=== PATIENT | female | born 1980 | race Caucasian/White ===

== ENCOUNTER 2016-11-12 06:21 | Emergency (ER) | payer SELFPAY ==
--- NOTE | 2016-11-12 08:24 | DIAGNOSTIC IMAGING REPORT ---
PROCEDURE: CT ABD/PELVIS WITH CONTRAST CLINICAL INDICATION: ABDOMINAL PAIN TECHNIQUE: 125 ml of Isovue 300 were injected intravenously and axial images were obtained of the entire abdomen and pelvis with sagittal and coronal reformations. COMPARISON: CT abdomen/pelvis 03/06/2013. FINDINGS: ABDOMEN: Lung bases are clear. Normal heart size. Cholecystectomy. Calcified hepatic granuloma. Stable 2.3 cm hypoenhancing lesion in the posterior aspect of the hepatic dome consistent with a hemangioma. Pancreas, spleen, adrenal glands and kidneys are unremarkable. No hydronephrosis. Minor atherosclerosis. Nonspecific bowel gas pattern. PELVIS: Normal appendix. 1.5 cm left ovarian cyst. Uterus and bladder are unremarkable. No pelvic mass, inflammatory changes or free fluid. Bones are unremarkable. IMPRESSION: 1. Cholecystectomy 2. Hepatic hemangioma 3. 1.5 cm left ovarian cyst 4. Results discussed with Dr. Greenfield All CT scans at this facility use dose modulation, iterative reconstruction, and/or weight-based dosing when appropriate to reduce radiation dose to as low as reasonably achievable.
--- NOTE | 2016-11-12 09:45 | ED CLINICAL REPORT ---
Clinical Report - Physicians/Mid Levels [facility] [address] [place] [address] 11/12/2016 6:22 Patient: AYANA GARCIA Time Seen: 07:17 Nov 12 2016. Arrived- By private vehicle. Historian- patient. CPT: ER phys charges level 4 (#[id number]). HISTORY OF PRESENT ILLNESS Chief Complaint: WEIGHT LOSS, FATIGUE, POOR APPETITE, WEAKNESS, NAUSEA, VOMITING and DIARRHEA. This started 2 years [employer] and is still present. At its maximum, severity described as moderate. When seen in the E.D., severity described as moderate. Modifying factors. Not worsened by anything. Not relieved by anything. (Has seen gastroenterology twice and was seeing neurology when her insurance ran out.). Similar symptoms previously: Chronically. Recent medical care: Not recently seen/assessed. REVIEW OF SYSTEMS No fever, sore throat, sinus drainage, nasal congestion or cough. No difficulty breathing, chest pain, abdominal pain, nausea or vomiting. No diarrhea, black stools, bloody stools, chills or difficulty with urination. No skin rash, back pain, calf pain or blackouts. No difficulty with ambulation. All systems otherwise negative, except as recorded above. PAST HISTORY Migraine Headache. Atypical Chest Pain. Chest Wall Pain. Diarrhea. Rectal Bleed. Gastroenteritis. Abdominal Pain. Nausea. Vomiting. UTI - Urinary Tract Infection. Pyelonephritis. Ureterolithiasis. Renal Colic. Depression. URI. Lifestyle / Substance Problems. Headache. Tension-Type Headache. Seizure. Ureterolithiasis [RuleOut]. Additional Surgeries: Cholecystectomy. Lithotripsy. Tubal Ligation. Uteroscopy. Medications: None. Allergies: Cipro.(vomiting) Morphine and Related. Definite Severe (headache, pain) Reglan. Definite Severe(jittery) Vicodin. Definite Severe(itching). SOCIAL HISTORY Heavy tobacco smoker (cigarette)- less than 1 pack per day. History of drug use: marijuana. No alcohol use. ADDITIONAL NOTES The nursing notes have been reviewed. PHYSICAL EXAM Vital Signs: 11/12/2016 06:27 BP: 119/69. HR: 56. RR: 18. O2 saturation: 100%. Temp: 98.5 F. Pain level now: 5/10. Appearance: Alert. Appears to be in pain. Patient in moderate distress. Eyes: Eyes normal inspection. ENT: Pharynx normal. Neck: No meningeal signs or lymphadenopathy. (Paracervical soft tissue tenderness to palpation and ROM.). CVS: Normal heart rate and rhythm. Heart sounds normal. Pulses normal. Respiratory: No respiratory distress. Breath sounds normal. Abdomen: Soft. Mild tenderness in the periumbilical area. No guarding. Bowel sounds normal. No mass. Back: Normal inspection. Skin: Skin warm. No rash. Extremities: Extremities exhibit normal ROM. No lower extremity edema. Neuro: Oriented X 3. No motor deficit. No sensory deficit. Reflexes normal. LABS, X-RAYS, AND EKG Abdominal CT: GB removed. 1.5 cm left ovarian cyst. Abdominal CT performed with IV contrast. The study was interpreted by the radiologist and discussed with the radiologist. Laboratory Tests: UA-Culture if indicated: (SONIA: 11/12/2016 06:45) ( [facility] 11/12/2016 07:53) Final results Test Result Flag Units (Reference) URINE COLOR YELLOW URINE APPEARANCE CLEAR URINE GLUCOSE NEGATIVE (NEGATIVE) URINE BILIRUBIN NEGATIVE (NEGATIVE) URINE KETONE NEGATIVE (NEGATIVE) URINE SPECIFIC GRAVITY <= 1.005 L (1.010-1.030) URINE PH 6.0 (5.0-8.0) URINE PROTEIN NEGATIVE (NEGATIVE) URINE UROBILINOGEN 0.2 EU/dL (0.2-1.0) URINE NITRITE NEGATIVE (NEGATIVE) URINE BLOOD 2+ (NEGATIVE) URINE LEUK ESTERASE NEGATIVE (NEGATIVE) URINE RBC 1-3 rbc/hpf (0-1) URINE WBC RARE wbc/hpf (0-1) URINE EPITHELIAL CELLS 1-3 EPI/hpf (0-5) URINE BACTERIA TRACE (<1+) (NONE SEEN) URINE COMMENT CULT NOT INDICATED URINE CULTURES ARE SET-UP BASED ON THE FOLLOWING CRITERIA:POSITIVE NITRITEPOSITIVE LEUKOCYTE ESTERASEGREATER THAN 10 WHITE BLOOD CELLSMODERATE (2+) OR GREATER BACTERIA Urine: (SONIA: 11/12/2016 06:45) ( [facility] 11/12/2016 07:17[facility] Final results Test Result Flag Units (Reference) URINE NEGATIVE ESR: (SONIA: 11/12/2016 07:33) ( [facility] 11/12/2016 08:06) Final results Test Result Flag Units (Reference) SED RATE WESTERGREN 3 mm/hr (0-20) CBC w Diff: (SONIA: 11/12/2016 06:40) ( [facility] 11/12/2016 07:16) Final results Test Result Flag Units (Reference) WHITE BLOOD COUNT 8.0 K/uL (4.5-11.5) RED BLOOD COUNT 4.67 M/uL (4.00-5.20) HEMOGLOBIN 12.6 gm/dL (12.0-16.0) HEMATOCRIT 38.7 % (36.0-46.0) MEAN CELL VOLUME 83 fL (80-100) MEAN CORPUSCULAR HGB 27 pg (26-34) MEAN CORPUSCULAR HGB CONC 33 g/dL (31-37) RED CELL DISTRIBUTION WIDTH 16.0 H % (11.6-14.8) PLATELET COUNT 257 K/uL (150-400) NEUTROPHIL % 55.7 % (50-75) LYMPH % 35.9 % (25-40) MONO % 4.7 % (3-14) EOSINOPHIL % 3.0 % (0-4) BASOPHIL % 0.7 % (0-2) PT with INR: (SONIA: 11/12/2016 06:40) ( [facility] 11/12/2016 07:18) Final results Test Result Flag Units (Reference) INR 1.0 (0.8-1.2) Low Intensity Therapy: INR 1.5-2.0 PT range 18.5-23.1Mod.Intensity Therapy: INR 2.0-3.0 PT range 23.1-31.5High Intensity Therapy: INR 2.5-3.5 PT range 27.4-35.5High Intensity Therapy 2: INR 3.0-4.0 PT range 31.5-39.3 [id number]: (SONIA: 11/12/2016 07:33) ( MsgRcvd 11/12/2016 07:50) Final results Test Result Flag Units (Reference) C-REACTIVE PROTEIN < 0.2 mg/dL (0.0-0.9) [id number]: (SONIA: 11/12/2016 07:33) ( MsgRcvd 11/12/2016 08:49) Final results Test Result Flag Units (Reference) PROCALCITONIN <0.5 ng/mL (0-0.5) PCT Concentration: Interpretation : Risk/option for action PCT <=0.5 ng/mL : Systemic : Low risk forinfection(sepsis): progression to severeis not likely. : systemic infection.Local bacterial : CAUTION-PCT levelsinfection is : below 0.5 ng/mL do notpossible. : exclude an infection,because localizedinfections (withoutsystemic signs) may beassociated with suchlow levels. If PCT ismeasured very earlyafter a bacterialchallenge (usually <6hours), these valuesmay still be low. Inthis case PCT shouldbe re-assessed 6-24hours later. PCT >0.5 and : Systemic infection: Moderate risk for<= 2 ng/mL : (sepsis) is : progression to severepossible, but : systemic infection.other conditions : The patient should beare known to : closely monitoredelevate PCT. : both clinically andby re-assessing PCTwithin 6-24 hours. PCT > 2 ng/mL : Systemic infection: High risk for(sepsis) is likely: progression to severeunless other : systemic infection.causes are known. : PCT >= 10 ng/mL : Important systemic: High likelihood ofinflammatory : severe sepsis orresponse, almost : septic shock.exclusively due to:severe bacterial :sepsis or septic :shock. : CMP: (SONIA: 11/12/2016 06:40) ( MsgRcvd 11/12/2016 08:25) Final results Test Result Flag Units (Reference) GLUCOSE 82 mg/dL (70-110) BUN 11 mg/dL (7-18) CREATININE 1.0 mg/dL (0.6-1.3) Estimated GFR >60 mL/min Estimated GFR- >60 mL/min Note: Persistent reduction over 3 months in eGFR<60 mL/min/1.73 m2 defines CKD. Patients with eGFR values>=60 mL/min/1.73 m2 may also have CKD if evidence ofpersistent proteinuria. Additional information may be foundat www.[email or web address].org. SODIUM 142 mmol/L (136-145) POTASSIUM 3.8 mmol/L (3.5-5.1) CHLORIDE 106 mmol/L (98-107) CARBON DIOXIDE 25 mmol/L (21-32) CALCIUM 9.0 mg/dL (8.5-10.1) TOTAL PROTEIN 7.1 g/dL (6.4-8.2) ALBUMIN 4.1 g/dL (3.3-5.0) BILIRUBIN, TOTAL 0.4 mg/dL (0.0-1.0) ALKALINE PHOSPHATASE 40 L U/L (46-116) AST (SGOT) 11 L U/L (15-37) ALT (SGPT) 22 U/L (12-78) LIPASE 89 U/L (73-393) AMYLASE 44 U/L (25-115) BETA HCG, QUANTITATIVE <1 mIU/mL REFERENCE RANGE:Adult Males: <2 mIU/mLNon- Females: <6 mIU/mL Females:Approximate Approximate hCGGestational Age Range (mIU/mL) 0-1 week 0-501-2 weeks 40-3002-3 weeks 100-59466-4 weeks 500-34566-0 months 5,000-200,0002-3 months 10,000-100,0002nd trimester 3,000-50,0003rd trimester 1,000-50,000 THYROID STIMULATING HORMONE 6.073 H uIU/mL (0.34-3.74) . PROGRESS AND PROCEDURES Course of Care: IV NS Zofran 4 mg IV Toradol 30 mg IV Ultram 100 mg po Patient is stable. Pt does not have any exam or testing data to direct work-up in a specific direction. There are no clinical signs of inflammation or infection. Patient/family counseled. Disposition: Discharged. Condition: stable and improved. CLINICAL IMPRESSION Chronic periumbilical abdominal pain of undetermined cause. Weight loss Mild hypothyroidism Chronic radicular neck pain. INSTRUCTIONS Avoid alcohol and NSAIDS. Examples of NSAIDS include aspirin, ibuprofen (Advil) and naproxen (Aleve). Avoid spicy foods. Other diet: no caffeine. (Stop motrin and excedrin for next 10 days.). Warnings: Further evaluation is necessary. SEDATIVE MEDICATION: You were given sedative medication during your visit. Do not drive or operate dangerous machinery. Prescription Medications: Zofran (orally disintegrating tablets) 4 mg: take 1 orally every 6 hours as needed for nausea. Dispense fifteen (15). No refill. Carafate 1 gm tablets: take 1 orally four times daily (30 minutes before meals and at bedtime) for 10 days. Dispense forty (40). No refills. Substitution is permissible. Ultram 50 mg tablets: take 1-2 orally every 6 hours as needed for pain. Dispense twenty (20). No refills. Substitution is permissible. Prilosec 40 mg capsules: take 1 capsule orally every day for 10 days. Dispense ten (10). No refill. Substitution is permissible. Follow-up: Follow up with your doctor in one week. Call for an appointment. Understanding of the discharge instructions verbalized by patient and family. Discharge instructions reviewed with and understanding was verbalized by spouse. (Electronically signed by Alexey Greenfield MD 11/24/2016 2:42)
--- NOTE | 2016-11-12 09:45 | ED CLINICAL REPORT ---
Clinical Report - Physicians/Mid Levels [facility] [address] [place] [address] 11/12/2016 6:22 Patient: AYANA GARCIA Time Seen: 07:17 Nov 12 2016. Arrived- By private vehicle. Historian- patient. CPT: ER phys charges level 4 (#[id number]). HISTORY OF PRESENT ILLNESS Chief Complaint: WEIGHT LOSS, FATIGUE, POOR APPETITE, WEAKNESS, NAUSEA, VOMITING and DIARRHEA. 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 At its maximum, severity described as moderate. When seen in the E.D., severity described as moderate. Modifying factors. Not worsened by anything. Not relieved by anything. (Has seen gastroenterology twice and was seeing neurology when her insurance ran out.). Similar symptoms previously: Chronically. Recent medical care: Not recently seen/assessed. REVIEW OF SYSTEMS No fever, sore throat, sinus drainage, nasal congestion or cough. No difficulty breathing, chest pain, abdominal pain, nausea or vomiting. No diarrhea, black stools, bloody stools, chills or difficulty with urination. No skin rash, back pain, calf pain or blackouts. No difficulty with ambulation. All systems otherwise negative, except as recorded above. PAST HISTORY Migraine Headache. Atypical Chest Pain. Chest Wall Pain. Diarrhea. Rectal Bleed. Gastroenteritis. Abdominal Pain. Nausea. Vomiting. UTI - Urinary Tract Infection. Pyelonephritis. Ureterolithiasis. Renal Colic. Depression. URI. Lifestyle / Substance Problems. Headache. Tension-Type Headache. Seizure. Ureterolithiasis [RuleOut]. Additional Surgeries: Cholecystectomy. Lithotripsy. Tubal Ligation. Uteroscopy. Medications: None. Allergies: Cipro.(vomiting) Morphine and Related. Definite Severe (headache, pain) Reglan. Definite Severe(jittery) Vicodin. Definite Severe(itching). SOCIAL HISTORY Heavy tobacco smoker (cigarette)- less than 1 pack per day. History of drug use: marijuana. No alcohol use. ADDITIONAL NOTES The nursing notes have been reviewed. PHYSICAL EXAM Vital Signs: 11/12/2016 06:27 BP: 119/69. HR: 56. RR: 18. O2 saturation: 100%. Temp: 98.5 F. Pain level now: 5/10. Appearance: Alert. Appears to be in pain. Patient in moderate distress. Eyes: Eyes normal inspection. ENT: Pharynx normal. Neck: No meningeal signs or lymphadenopathy. (Paracervical soft tissue tenderness to palpation and ROM.). CVS: Normal heart rate and rhythm. Heart sounds normal. Pulses normal. Respiratory: No respiratory distress. Breath sounds normal. Abdomen: Soft. Mild tenderness in the periumbilical area. No guarding. Bowel sounds normal. No mass. Back: Normal inspection. Skin: Skin warm. No rash. Extremities: Extremities exhibit normal ROM. No lower extremity edema. Neuro: Oriented X 3. No motor deficit. No sensory deficit. Reflexes normal. LABS, X-RAYS, AND EKG Abdominal CT: GB removed. 1.5 cm left ovarian cyst. Abdominal CT performed with IV contrast. The study was interpreted by the radiologist and discussed with the radiologist. Laboratory Tests: UA-Culture if indicated: (SONIA: 11/12/2016 06:45) ( [facility] 11/12/2016 07:53) Final results Test Result Flag Units (Reference) URINE COLOR YELLOW URINE APPEARANCE CLEAR URINE GLUCOSE NEGATIVE (NEGATIVE) URINE BILIRUBIN NEGATIVE (NEGATIVE) URINE KETONE NEGATIVE (NEGATIVE) URINE SPECIFIC GRAVITY <= 1.005 L (1.010-1.030) URINE PH 6.0 (5.0-8.0) URINE PROTEIN NEGATIVE (NEGATIVE) URINE UROBILINOGEN 0.2 EU/dL (0.2-1.0) URINE NITRITE NEGATIVE (NEGATIVE) URINE BLOOD 2+ (NEGATIVE) URINE LEUK ESTERASE NEGATIVE (NEGATIVE) URINE RBC 1-3 rbc/hpf (0-1) URINE WBC RARE wbc/hpf (0-1) URINE EPITHELIAL CELLS 1-3 EPI/hpf (0-5) URINE BACTERIA TRACE (<1+) (NONE SEEN) URINE COMMENT CULT NOT INDICATED URINE CULTURES ARE SET-UP BASED ON THE FOLLOWING CRITERIA:POSITIVE NITRITEPOSITIVE LEUKOCYTE ESTERASEGREATER THAN 10 WHITE BLOOD CELLSMODERATE (2+) OR GREATER BACTERIA Urine: (SONIA: 11/12/2016 06:45) ( [facility] 11/12/2016 07:17) Final results Test Result Flag Units (Reference) URINE NEGATIVE ESR: (SONIA: 11/12/2016 07:33) ( [facility] 11/12/2016 08:06) Final results Test Result Flag Units (Reference) SED RATE WESTERGREN 3 mm/hr (0-20) CBC w Diff: (SONIA: 11/12/2016 06:40) ( [facility] 11/12/2016 07:16) Final results Test Result Flag Units (Reference) WHITE BLOOD COUNT 8.0 K/uL (4.5-11.5) RED BLOOD COUNT 4.67 M/uL (4.00-5.20) HEMOGLOBIN 12.6 gm/dL (12.0-16.0) HEMATOCRIT 38.7 % (36.0-46.0) MEAN CELL VOLUME 83 fL (80-100) MEAN CORPUSCULAR HGB 27 pg (26-34) MEAN CORPUSCULAR HGB CONC 33 g/dL (31-37) RED CELL DISTRIBUTION WIDTH 16.0 H % (11.6-14.8) PLATELET COUNT 257 K/uL (150-400) NEUTROPHIL % 55.7 % (50-75) LYMPH % 35.9 % (25-40) MONO % 4.7 % (3-14) EOSINOPHIL % 3.0 % (0-4) BASOPHIL % 0.7 % (0-2) PT with INR: (SONIA: 11/12/2016 06:40) ( [facility] 11/12/2016 07:18) Final results Test Result Flag Units (Reference) INR 1.0 (0.8-1.2) Low Intensity Therapy: INR 1.5-2.0 PT range 18.5-23.1Mod.Intensity Therapy: INR 2.0-3.0 PT range 23.1-31.5High Intensity Therapy: INR 2.5-3.5 PT range 27.4-35.5High Intensity Therapy 2: INR 3.0-4.0 PT range 31.5-39.3 [id number]: (SONIA: 11/12/2016 07:33) ( MsgRcvd 11/12/2016 07:50) Final results Test Result Flag Units (Reference) C-REACTIVE PROTEIN < 0.2 mg/dL (0.0-0.9) [id number]: (SONIA: 11/12/2016 07:33) ( MsgRcvd 11/12/2016 08:49) Final results Test Result Flag Units (Reference) PROCALCITONIN <0.5 ng/mL (0-0.5) PCT Concentration: Interpretation : Risk/option for action PCT <=0.5 ng/mL : Systemic : Low risk forinfection(sepsis): progression to severeis not likely. : systemic infection.Local bacterial : CAUTION-PCT levelsinfection is : below 0.5 ng/mL do notpossible. : exclude an infection,because localizedinfections (withoutsystemic signs) may beassociated with suchlow levels. If PCT ismeasured very earlyafter a bacterialchallenge (usually <6hours), these valuesmay still be low. Inthis case PCT shouldbe re-assessed 6-24hours later. PCT >0.5 and : Systemic infection: Moderate risk for<= 2 ng/mL : (sepsis) is : progression to severepossible, but : systemic infection.other conditions : The patient should beare known to : closely monitoredelevate PCT. : both clinically andby re-assessing PCTwithin 6-24 hours. PCT > 2 ng/mL : Systemic infection: High risk for(sepsis) is likely: progression to severeunless other : systemic infection.causes are known. : PCT >= 10 ng/mL : Important systemic: High likelihood ofinflammatory : severe sepsis orresponse, almost : septic shock.exclusively due to:severe bacterial :sepsis or septic :shock. : CMP: (SONIA: 11/12/2016 06:40) ( MsgRcvd 11/12/2016 08:25) Final results Test Result Flag Units (Reference) GLUCOSE 82 mg/dL (70-110) BUN 11 mg/dL (7-18) CREATININE 1.0 mg/dL (0.6-1.3) Estimated GFR >60 mL/min Estimated GFR- >60 mL/min Note: Persistent reduction over 3 months in eGFR<60 mL/min/1.73 m2 defines CKD. Patients with eGFR values>=60 mL/min/1.73 m2 may also have CKD if evidence ofpersistent proteinuria. Additional information may be foundat www.[email or web address].org. SODIUM 142 mmol/L (136-145) POTASSIUM 3.8 mmol/L (3.5-5.1) CHLORIDE 106 mmol/L (98-107) CARBON DIOXIDE 25 mmol/L (21-32) CALCIUM 9.0 mg/dL (8.5-10.1) TOTAL PROTEIN 7.1 g/dL (6.4-8.2) ALBUMIN 4.1 g/dL (3.3-5.0) BILIRUBIN, TOTAL 0.4 mg/dL (0.0-1.0) ALKALINE PHOSPHATASE 40 L U/L (46-116) AST (SGOT) 11 L U/L (15-37) ALT (SGPT) 22 U/L (12-78) LIPASE 89 U/L (73-393) AMYLASE 44 U/L (25-115) BETA HCG, QUANTITATIVE <1 mIU/mL REFERENCE RANGE:Adult Males: <2 mIU/mLNon- Females: <6 mIU/mL Females:Approximate Approximate hCGGestational Age Range (mIU/mL) 0-1 week 0-501-2 weeks 40-3002-3 weeks 100-94922-2 weeks 500-86063-6 months 5,000-200,0002-3 months 10,000-100,0002nd trimester 3,000-50,0003rd trimester 1,000-50,000 THYROID STIMULATING HORMONE 6.073 H uIU/mL (0.34-3.74) . PROGRESS AND PROCEDURES Course of Care: IV NS Zofran 4 mg IV Toradol 30 mg IV Ultram 100 mg po Patient is stable. Pt does not have any exam or testing data to direct work-up in a specific direction. There are no clinical signs of inflammation or infection. Patient/family counseled. Disposition: Discharged. Condition: stable and improved. CLINICAL IMPRESSION Chronic periumbilical abdominal pain of undetermined cause. Weight loss Mild hypothyroidism Chronic radicular neck pain. INSTRUCTIONS Avoid alcohol and NSAIDS. Examples of NSAIDS include aspirin, ibuprofen (Advil) and naproxen (Aleve). Avoid spicy foods. Other diet: no caffeine. (Stop motrin and excedrin for next 10 days.). Warnings: Further evaluation is necessary. SEDATIVE MEDICATION: You were given sedative medication during your visit. Do not drive or operate dangerous machinery. Prescription Medications: Zofran (orally disintegrating tablets) 4 mg: take 1 orally every 6 hours as needed for nausea. Dispense fifteen (15). No refill. Carafate 1 gm tablets: take 1 orally four times daily (30 minutes before meals and at bedtime) for 10 days. Dispense forty (40). No refills. Substitution is permissible. Ultram 50 mg tablets: take 1-2 orally every 6 hours as needed for pain. Dispense twenty (20). No refills. Substitution is permissible. Prilosec 40 mg capsules: take 1 capsule orally every day for 10 days. Dispense ten (10). No refill. Substitution is permissible. Follow-up: Follow up with your doctor in one week. Call for an appointment. Understanding of the discharge instructions verbalized by patient and family. Discharge instructions reviewed with and understanding was verbalized by spouse. (Electronically signed by Alexey Greenfield MD 11/24/2016 2:42)
--- NOTE | 2016-11-12 09:46 | ED NURSING NOTES ---
Clinical Report - Nurses [facility] [address] [place] [address] 11/12/2016 6:22 Patient: AYANA GARCIA TRIAGE Triage time 06:25. Acuity: LEVEL 3. Chief Complaint: WEIGHT LOSS, FATIGUE, POOR APPETITE, WEAKNESS, NAUSEA, VOMITING and DIARRHEA. --06:35 Dionne Rojo R.N. 06:27 11/12/16. BP: 119/69 taken on the left arm, while lying. HR: 56. RR: 18 (regular and unlabored). O2 saturation: 100% on room air. Temp: 98.5 F (oral). Pain level now: 09/19. --06:35 Dionne Rojo R.N. Weight: 63.5 kg stated. Height/Length: 64 inches Per Patient. BMI: 24. --06:31 Dionne Rojo R.N. Medications None. --06:33 Dionne Rojo R.N. Allergies Morphine and Related. Definite Severe (headache, pain) --06:33 Dionne Rojo R.N. Reglan. Definite Severe(jittery) --06:33 Dionne Rojo R.N. Cipro.(vomiting) Vicodin. Definite Severe(itching) --06:34 Dionne Rojo R.N. History Arrived by private vehicle. Historian: patient. Accompanied by family. Primary physician (none). Onset. (over the last year). ( not eaten much in the last 2-3 days, weak, worse now). PAST MEDICAL HX: Immunizations: up-to-date. Last normal menstrual period was 4 weeks ago. 4. Para 3. Sexual history - sexually active. Has had a tubal ligation. SOCIAL HX: Heavy tobacco smoker (cigarette)- 1 pack per day. History of drug use: marijuana. Recently used drugs yesterday. No alcohol use. The patient was exposed to C-diff. ABUSE ASSESSMENT: No report of abuse. SELF HARM ASSESSMENT: A self harm assessment was performed. The patient answered "no" to the question "Have you recently felt down, depressed, or hopeless?", "Have you noticed less interest or pleasure in doing things?", "Do you have thoughts of harming or killing yourself?", "Are you here because you tried to hurt yourself?", "Have you ever tried to hurt yourself before today?", "Have you recently had thoughts about harming or killing others?" and "Do you have any dangerous items in your possession?". FALL RISK ASSESSMENT: Fall risk assessment completed. No fall risk identified. NUTRITIONAL RISK ASSESSMENT: The nutritional risk assessment revealed no deficiencies. FUNCTIONAL ASSESSMENT: Functional assessment: no impairments noted. LEARNING NEEDS ASSESSMENT: The learning needs assessment revealed no barriers. SKIN INTEGRITY ASSESSMENT: Skin integrity risk assessment completed. No skin integrity risk identified. --06:35 Dionne Rojo R.N. PROBLEMS: C. Difficile Colitis. Migraine Headache. Atypical Chest Pain. Chest Wall Pain. Diarrhea. Rectal Bleed. Gastroenteritis. Abdominal Pain. Nausea. Vomiting. UTI - Urinary Tract Infection. Pyelonephritis. Ureterolithiasis. Renal Colic. Depression. URI. Lifestyle / Substance Problems. Headache. Immunizations. Tension-Type Headache. LNMP - Last Normal Menstrual Period. Seizure. --06:34 Dionne Rojo R.N. Ureterolithiasis [RuleOut]. --06:34 Dionne Rojo R.N. ADDITIONAL SURGERIES: Cholecystectomy. Lithotripsy. Tubal Ligation. Uteroscopy. --06:34 Dionne Rojo R.N. Interventions ID band on patient. To treatment room. --06:35 Dionne Rojo R.N. PHYSICAL ASSESSMENT Ambulatory to room. GENERAL / NEURO / PSYCH: Alert. Oriented X 4. Appears in pain. HEENT: Pupils equal, round and reactive to light. No facial asymmetry noted. Mucous membranes are pink. RESPIRATORY: Respirations not labored. Chest nontender. Breath sounds within normal limits. CVS: Normal sinus rhythm noted. Capillary refill less than 2 seconds. Pulses within normal limits. GI / : Abdomen soft and nontender and normal bowel sounds. SKIN: Skin intact. Skin is warm and dry. Normal skin turgor. --06:35 Dionne Rojo R.N. NURSING PROGRESS NOTES Patient gowned. Two patient identifiers checked. Call light placed in reach. Side rails up x 1. Bed placed in lowest position. Brakes of bed on. Patient ready for evaluation- chart flagged. --06:35 Dionne Rojo R.N. 06:48 11/12/2016 Site #1 started via IV in the right forearm with an 20g angiocath, with aseptic technique and good blood return; one attempt. Blood drawn: rainbow set. Labeled in the presence of the patient and sent to the lab. Saline lock flushed with 10 mL saline. --06:51 Dionne Rojo R.N. 07:39 11/12/2016 Started bag #1 1000 mL IV Fluids IV NS (Saline); at 999 mL/hr over 1 hour(s) via site #1. Allergies verified and confirmed 5 rights. IV patency established. IV site checked: no pain, redness, or swelling. IV flushed thoroughly pre- and post-medication administration. --07:44 Ya Sigala R.N. Care transferred and report received ([id number]). --07:52 Barrett Franco R.N. 07:53 11/12/16. --07:53 Barrett Franco R.N. 07:52 11/12/16. BP: 97/56. HR: 64. RR: 16. O2 saturation: 100% on room air. Temp: 98.4 F (oral). Pain level now: 5/10. Additional comments: Pain is located in back and right side. --07:53 Barrett Franco R.N. 07:53 11/12/16. Patient and family informed about reason for wait and about plan of care. --07:53 Barrett Franco R.N. 07:58 11/12/2016 Zofran (Ondansetron HCl) IVP 4 mg given over 2 minute(s) via site #1. Allergies verified and confirmed 5 rights. IV patency established. IV site checked: no pain, redness, or swelling. IV flushed thoroughly pre- and post-medication administration. IVP given by RN. --07:58 Barrett Franco R.N. 07:58 11/12/16. Patient transported to radiology by stretcher with Sferra. --07:58 Barrett Franco R.N. 08:22 11/12/2016 Toradol IVP 30 mg given over 2 minute(s) via site #1. Allergies verified and confirmed 5 rights. IV patency established. IV site checked: no pain, redness, or swelling. IV flushed thoroughly pre- and post-medication administration. IVP given by RN. --08:22 Barrett Franco R.N. Patient returned from radiology by stretcher with Sferra. ([id number]). --08:22 Barrett Franco R.N. 08:22 11/12/16. Patient and family informed about reason for wait and about plan of care. --08:22 Barrett Franco R.N. 08:23 11/12/16. Patient waiting for lab and CT results. --08:23 Barrett Franco R.N. 08:46 11/12/16. Reassessment after medication administered. She has had no adverse reaction. Overall patient status is the same- she states feels the same. --08:46 Barrett Franco R.N. 08:47 11/12/16. ( c/o pain 5/10, right side, flank). --08:47 Barrett Franco R.N. 09:24 11/12/16. Patient and family informed about plan of care. --09:24 Barrett Franco R.N. 09:43 11/12/2016 Ultram (TraMADol HCl) PO 100 mg given. Allergies verified, confirmed 5 rights and sedative warning given to the patient. --09:48 Barrett Franco R.N. 09:53 11/12/2016 IV Fluids IV NS Discontinued: bag #1 infused. Total amount infused: 1000 mL. IV patency established. IV site checked: no pain, redness, or swelling. IV flushed thoroughly. --09:53 Barrett Franco R.N. DISPOSITION / DISCHARGE 09:53 11/12/16. Condition at departure: improved. The goals identified in the patient's plan of care were met. No learning barriers present. Discharge instructions provided and reviewed with the patient and spouse. Reviewed warnings. Reviewed medication(s). Treatments reviewed. Patient and spouse verbalized understanding. Written instructions provided in Egyptian. The patient was discharged by the physician. She was discharged home and accompanied by family. She left the Emergency Department ambulatory and via private vehicle. Family member driving. FALL RISK ASSESSMENT: Fall risk assessment completed. No fall risk identified. --09:54 Barrett Franco R.N. 09:52 11/12/16. BP: 106/74. HR: 75. RR: 16. O2 saturation: 99% on room air. Temp: 98.2 F (oral). Pain level now: 08/20. --09:54 Barrett Franco R.N. 09:54 11/12/16. Departure time: 09:54 Nov 12 2016. --09:54 Barrett Franco R.N. Locked/Released at 11/12/2016 9:57 by Barrett Franco R.N.
--- NOTE | 2016-11-12 09:46 | ED ORDER SUMMARY ---
..... Patient: AYANA GARCIA OrderSheet [facility] VisitID: [id number] [address] [place] [address] 36y, F Registration Date/Time: 11/12/2016 ORDER SHEET Weight: 63.5 kg (stated) Allergies: Morphine and Related, Reglan, Cipro, Vicodin GENERAL ORDERS: CBC w Diff Urgent (06:50 11/12/2016 CBradburn R.N. per protocol) (6:50 CBradburn R.N.) CMP Urgent (06:50 11/12/2016 CBradburn R.N. per protocol) (6:50 CBradburn R.N.) UA-Culture if indicated Urgent (06:50 11/12/2016 CBradburn R.N. per protocol) (6:50 CBradburn R.N.) PT with INR Urgent (06:50 11/12/2016 CBradburn R.N. per protocol) (6:50 CBradburn R.N.) Amylase Urgent (06:50 11/12/2016 CBradburn R.N. per protocol) (6:50 CBradburn R.N.) Lipase Urgent (06:50 11/12/2016 CBradburn R.N. per protocol) (6:50 CBradburn R.N.) Urine Urgent (06:50 11/12/2016 CBradburn R.N. per protocol) (6:50 CBradburn R.N.) Serum Quantitative Urgent (06:50 11/12/2016 CBradburn R.N. per protocol) (6:50 CBradburn R.N.) CT Abd/Pel w Cont (No) (N/A) Urgent (07:33 11/12/2016 La BROWN) (Ack 7:47 LNations ER Tech1) (8:21 Francoise R.N.) CRP Urgent (07:33 11/12/2016 La BROWN) (7:35 Jody R.N.) PCT (Procalcitonin) Urgent (07:33 11/12/2016 La BROWN) (7:35 Jody R.N.) ESR Urgent (07:33 11/12/2016 La BROWN) (7:35 Jody Hoyos.N.) TSH Urgent (07:59 11/12/2016 La BROWN) (Ack 8:16 LNations ER Tech1) (8:21 Francoise R.N.) MEDICATION ORDERS: Ultram PO 100 mg (NOW) (09:42 11/12/2016 La BROWN) (Ack 9:43 Francoise R.N.) (9:48 Francoise R.N.) IV FLUIDS: IV NS : initial bolus 1000 mL (1000 mL/hr), then 150 mL/hr for 4h (NOW); Routine (07:32 11/12/2016 La BROWN) (7:44 Jody Hoyos.N.) Zofran IV 4 mg (NOW) (07:57 11/12/2016 Francoise R.N. per protocol) (7:58 Francoise R.N.) Toradol IV 30 mg (NOW) (07:58 11/12/2016 La BROWN) (Ack 8:02 JBoardley R.N.) (8:22 JBoardley R.N.) ORDER SHEET NOTES: [Electronically signed by Barrett Franco R.N. (09:57 11/12/2016)] [Electronically signed by Alexey Greenfield MD (02:42 11/24/2016)] [Electronically locked/signed by Barrett Franco R.N. (09:57 11/12/2016)]
--- NOTE | 2016-11-12 09:46 | ED ORDER SUMMARY ---
..... Patient: AYANA GARCIA OrderSheet [facility] VisitID: [id number] [address] [place] [address] 36y, F Registration Date/Time: 11/12/2016 ORDER SHEET Weight: 63.5 kg (stated) Allergies: Morphine and Related, Reglan, Cipro, Vicodin GENERAL ORDERS: CBC w Diff Urgent (06:50 11/12/2016 CBradburn R.N. per protocol) (6:50 CBradburn R.N.) CMP Urgent (06:50 11/12/2016 CBradburn R.N. per protocol) (6:50 CBradburn R.N.) UA-Culture if indicated Urgent (06:50 11/12/2016 CBradburn R.N. per protocol) (6:50 CBradburn R.N.) PT with INR Urgent (06:50 11/12/2016 CBradburn R.N. per protocol) (6:50 CBradburn R.N.) Amylase Urgent (06:50 11/12/2016 CBradburn R.N. per protocol) (6:50 CBradburn R.N.) Lipase Urgent (06:50 11/12/2016 CBradburn R.N. per protocol) (6:50 CBradburn R.N.) Urine Urgent (06:50 11/12/2016 CBradburn R.N. per protocol) (6:50 CBradburn R.N.) Serum Quantitative Urgent (06:50 11/12/2016 CBradburn R.N. per protocol) (6:50 CBradburn R.N.) CT Abd/Pel w Cont (No) (N/A) Urgent (07:33 11/12/2016 La BROWN) (Ack 7:47 LNations ER Tech1) (8:21 Francoise R.N.) CRP Urgent (07:33 11/12/2016 La BROWN) (7:35 Jody R.N.) PCT (Procalcitonin) Urgent (07:33 11/12/2016 La BROWN) (7:35 Jody R.N.) ESR Urgent (07:33 11/12/2016 La BROWN) (7:35 Jody Hoyos.N.) TSH Urgent (07:59 11/12/2016 La BROWN) (Ack 8:16 LNations ER Tech1) (8:21 Francoise R.N.) MEDICATION ORDERS: Ultram PO 100 mg (NOW) (09:42 11/12/2016 La BROWN) (Ack 9:43 Francoise R.N.) (9:48 Francoise R.N.) IV FLUIDS: IV NS : initial bolus 1000 mL (1000 mL/hr), then 150 mL/hr for 4h (NOW); Routine (07:32 11/12/2016 La BROWN) (7:44 Jody Hoyos.N.) Zofran IV 4 mg (NOW) (07:57 11/12/2016 Francoise R.N. per protocol) (7:58 Francoise R.N.) Toradol IV 30 mg (NOW) (07:58 11/12/2016 La BROWN) (Ack 8:02 JBoardley R.N.) (8:22 JBoardley R.N.) ORDER SHEET NOTES: [Electronically signed by Barrett Franco R.N. (09:57 11/12/2016)] [Electronically signed by Alexey Greenfield MD (02:42 11/24/2016)] [Electronically locked/signed by Barrett Franco R.N. (09:57 11/12/2016)]
--- NOTE | 2016-11-24 02:42 | ED MED RECONCILIATION SUMMARY ---
Patient: AYANA GARCIA Medication Reconciliation Report Located [facility] VisitID: [id number] [address] [place] [address] 36y, F Registration Date/Time: 11/12/2016 Weight: 63.5 kg Height/Length: 64 in. BMI: 24.0 ALLERGIES: Cipro, Morphine and Related, Reglan, Vicodin The patient's Home Medications are listed below: NONE. The source(s) of the original Home Medication information: Not obtained. The following Medications were given to the patient in the Emergency Department: IV NS IV Fluids bolus 0, then 999 mL/hr, administered: 11/12/2016 7:39:00 AM Zofran [IVP] IVP 4 mg, administered: 11/12/2016 7:58:00 AM Toradol [IVP] IVP 30 mg, administered: 11/12/2016 8:22:00 AM Ultram [PO] PO 100 mg, administered: 11/12/2016 9:43:00 AM The following Medications were prescribed to the patient: Zofran (orally disintegrating tablets) 4 mg: take 1 orally every 6 hours as needed for nausea. Dispense fifteen (15). No refill. -- Alexey Greenfield MD Carafate 1 gm tablets: take 1 orally four times daily (30 minutes before meals and at bedtime) for 10 days. Dispense forty (40). No refills. Substitution is permissible. -- Alexey Greenfield MD Ultram 50 mg tablets: take 1-2 orally every 6 hours as needed for pain. Dispense twenty (20). No refills. Substitution is permissible. -- Alexey Greenfield MD Prilosec 40 mg capsules: take 1 capsule orally every day for 10 days. Dispense ten (10). No refill. Substitution is permissible. -- Alexey Greenfield MD
--- NOTE | 2016-11-24 02:42 | ED MAR SUMMARY ---
..... Medication Administration Record [facility] [address] [place] [address] Patient: AYANA GARCIA Visit ID: [id number] 36y, F Weight: 63.5 kg Height/Length: 64 in BMI: 24 ALLERGIES: Cipro, Vicodin, Reglan, Morphine and Related Start 07:39 11/12/2016 Ya Sigala R.N., Stop 09:53 11/12/2016 Barrett Franco R.N. Medication Administered: IV NS (SALINE), Dose: IV Fluids over 1 hour(s), Rate: 999 mL/hr, Dispensed: 1000 mL bag, Site: #1 right forearm. Medication Ordered: IV NS : initial bolus 1000 mL (1000 mL/hr), then 150 mL/hr for 4h (NOW); Routine. Given 07:58 11/12/2016 Barrett Franco R.N. Medication Administered: ZOFRAN [IVP] (ONDANSETRON HCL), Dose: 4 mg IVP over 2 minute(s), Site: #1 right forearm. Medication Ordered: Zofran IV 4 mg (NOW). Given 08:22 11/12/2016 Barrett Franco R.N. Medication Administered: TORADOL [IVP], Dose: 30 mg IVP over 2 minute(s), Site: #1 right forearm. Medication Ordered: Toradol IV 30 mg (NOW). Given 09:43 11/12/2016 Barrett Franco R.N. Medication Administered: ULTRAM [PO] (TRAMADOL HCL), Dose: 100 mg PO. Medication Ordered: Ultram PO 100 mg (NOW).
--- NOTE | 2016-11-24 02:42 | ED MAR SUMMARY ---
..... Medication Administration Record [facility] [address] [place] [address] Patient: AYANA GARCIA Visit ID: [id number] 36y, F Weight: 63.5 kg Height/Length: 64 in BMI: 24 ALLERGIES: Cipro, Vicodin, Reglan, Morphine and Related Start 07:39 11/12/2016 Ya Sigala R.N., Stop 09:53 11/12/2016 Barrett Franco R.N. Medication Administered: IV NS (SALINE), Dose: IV Fluids over 1 hour(s), Rate: 999 mL/hr, Dispensed: 1000 mL bag, Site: #1 right forearm. Medication Ordered: IV NS : initial bolus 1000 mL (1000 mL/hr), then 150 mL/hr for 4h (NOW); Routine. Given 07:58 11/12/2016 Brarett Franco R.N. Medication Administered: ZOFRAN [IVP] (ONDANSETRON HCL), Dose: 4 mg IVP over 2 minute(s), Site: #1 right forearm. Medication Ordered: Zofran IV 4 mg (NOW). Given 08:22 11/12/2016 Barrett Franco R.N. Medication Administered: TORADOL [IVP], Dose: 30 mg IVP over 2 minute(s), Site: #1 right forearm. Medication Ordered: Toradol IV 30 mg (NOW). Given 09:43 11/12/2016 Barrett Franco R.N. Medication Administered: ULTRAM [PO] (TRAMADOL HCL), Dose: 100 mg PO. Medication Ordered: Ultram PO 100 mg (NOW).
--- NOTE | 2016-11-24 02:42 | ED DISCHARGE INSTRUCTIONS ---
Patient: AYANA GARCIA General Instructions [facility] VisitID: [id number] [place] [address] 36y, F Registration Date/Time: 11/12/2016 Chronic periumbilical abdominal pain of undetermined cause. Weight loss Mild hypothyroidism Chronic radicular neck pain. INSTRUCTIONS Avoid alcohol and NSAIDS. Examples of NSAIDS include aspirin, ibuprofen (Advil) and naproxen (Aleve). Avoid spicy foods. Other diet: no caffeine. (Stop motrin and excedrin for next 10 days.). Warnings: Further evaluation is necessary. SEDATIVE MEDICATION: You were given sedative medication during your visit. Do not drive or operate dangerous machinery. Prescription Medications: Zofran (orally disintegrating tablets) 4 mg: take 1 orally every 6 hours as needed for nausea. Dispense fifteen (15). No refill. Carafate 1 gm tablets: take 1 orally four times daily (30 minutes before meals and at bedtime) for 10 days. Dispense forty (40). No refills. Substitution is permissible. Ultram 50 mg tablets: take 1-2 orally every 6 hours as needed for pain. Dispense twenty (20). No refills. Substitution is permissible. Prilosec 40 mg capsules: take 1 capsule orally every day for 10 days. Dispense ten (10). No refill. Substitution is permissible. Follow-up: Follow up with your doctor in one week. Call for an appointment. Understanding of the discharge instructions verbalized by patient and family. Discharge instructions reviewed with and understanding was verbalized by spouse. ADDITIONAL INFORMATION Abdominal Pain, Unknown Cause (Female) The exact cause of your abdominal (stomach) pain is not certain. This does not mean that this is something to worry about, or the right tests were not done. Everyone likes to know the exact cause of the problem, but sometimes with abdominal pain, there is no clear-cut cause, and this could be a good thing. The good news is that your symptoms can be treated, and you will feel better. Your condition does not seem serious now; however, sometimes the signs of a serious problem may take more time to appear. For this reason,it is important for you to watch for any new symptoms, problems,or worsening of your condition. Over the next few days, the abdominal pain may come and go, or be continuous. Other common symptoms can include nausea and vomiting. Sometimes it can be difficult to tell if you feel nauseous, you may just feel bad and not associate that feeling with nausea. Constipation, diarrhea, and a fever may go along with the pain. The pain may continue even if treated correctly over the following days. Depending on how things go, sometimes the cause can become clear and may require further or different treatment. Additional evaluations, medications, or tests may be needed. Home care Your health care provider may prescribe medications for pain, symptoms, or an infection. Follow the health care provider's instructions for taking these medications. General care Rest until your next exam. No strenuous activities. Try to find positions that ease discomfort. A small pillow placed on the abdomen may help relieve pain. Something warm on your abdomen (such as a heating pad) may help, but be careful not to burn yourself. Diet Do not force yourself to eat, especially if having cramps, vomiting, or diarrhea. Water is important so you do not get dehydrated. Soup may also be good. Sports drinks may also help, especially if they are not too acidic. Make sure you don't drink sugary drinks as this can make things worse. Take liquids in small amounts. Do not guzzle them. Caffeine sometimes makes the pain and cramping worse. Avoid dairy products if you have vomiting or diarrhea. Don't eat large amounts at a time. Wait a few minutes between bites. Eat a diet low in fiber (called a low-residue diet). Foods allowed include refined breads, white rice, fruit and vegetable juices without pulp, tender meats. These foods will pass more easily through the intestine. Avoid whole-grain foods, whole fruits and vegetables, meats, seeds and nuts, fried or fatty foods, dairy, alcohol and spicy foods until your symptoms go away. Follow-up care Follow up with your health care provider as instructed, or if your pain does not begin to improve in the next 24 hours. When to seek medical care Seek prompt medical care if any of the following occur: Pain gets worse or moves to the right lower abdomen New or worsening vomiting or diarrhea Swelling of the abdomen Unable to pass stool for more than three days Fever of 100.4F (38C) or higher, or as directed by your healthcare provider. Blood in vomit or bowel movements (dark red or black color) Jaundice (yellow color of eyes and skin) Weakness, dizziness Chest, arm, back, neck or jaw pain Unexpected vaginal bleeding or missed period Call 911 Call emergency services if any of the following occur: Trouble breathing Confusion Fainting or loss of consciousness Rapid heart rate Seizure Refugio Diet A bland diet is used for patients with an upset stomach. It consists of foods that are mild and easy to digest. It is better to eat small frequent meals rather than three large meals a day. BEVERAGES OK: Fruit juices, non-caffeinated teas and coffee, non-carbonated soto AVOID: Carbonated beverage, caffeinated tea and coffee, all alcoholic beverages BREAD OK: Refined white, wheat or rye bread, susan or soda crackers, Yue toast, plain rolls, bagels AVOID: Whole-grain bread CEREAL OK: Refined cereals: cooked or ready to eat AVOID: Whole grain cereals and granola, or those containing bran, seeds or nuts DESSERTS OK: Peanut butter and all others except those to "avoid" AVOID: Chocolate, cocoa, coconut, popcorn, nuts, seeds, jam, marmalade FRUITS OK: Canned, cooked, frozen or fresh fruits without seeds or tough skin AVOID: Olives, skin and seeds of fruit MEATS OK: All fresh or preserved meat, fish and fowl AVOID: Any that are prepared with those spices to "avoid" CHEESE & EGGS OK: Eggs, cottage cheese, cream cheese, other cheeses AVOID: All cheeses made with those spices to "avoid" POTATOES & PASTA OK: Potato, rice, macaroni, noodles, spaghetti AVOID: None SOUPS OK: All soups without heavy seasoning AVOID: Soups made with those spices to "avoid" VEGETABLES OK: Canned, cooked, fresh or frozen mildly flavored vegetables without seeds, skins or coarse fiber AVOID: Vegetables prepared with those spices to "avoid"; skin and seeds of vegetables and those with coarse fiber SPICES OK: Salt, lemon and [place] juice, vinegar, all extracts, col[place], cinnamon, thyme, mace, allspice, paprika AVOID: [place] powder, cloves, pepper, seed spices, garlic, gravy pickles, highly seasoned salad dressings Ondansetron Oral disintegrating tablet What is this medicine? ONDANSETRON (on BRAXTON se tracy) is used to treat nausea and vomiting caused by chemotherapy. It is also used to prevent or treat nausea and vomiting after surgery. How should I use this medicine? These tablets are made to dissolve in the mouth. Do not try to push the tablet through the foil backing. With dry hands, peel away the foil backing and gently remove the tablet. Place the tablet in the mouth and allow it to dissolve, then swallow. While you may take these tablets with water, it is not necessary to do so. Talk to your night shift regarding the use of this medicine in children. Special care may be needed. What side effects may I notice from receiving this medicine? Side effects that you should report to your doctor or health human services care specialist as soon as possible: allergic reactions like skin rash, itching or hives, swelling of the face, lips, or tongue breathing problems dizziness fast or irregular heartbeat feeling faint or lightheaded, falls fever and chills swelling of the hands and feet tightness in the chest Side effects that usually do not require medical attention (report to your doctor or health human services care specialist if they continue or are bothersome): constipation or diarrhea headache What may interact with this medicine? Do not take this medicine with any of the following medications: -apomorphine -cisapride -dofetilide -dronedarone -pimozide -thioridazine -ziprasidone This medicine may also interact with the following medications: -carbamazepine -phenytoin -rifampicin -tramadol -other medicines that prolong the QT interval (cause an abnormal heart rhythm) What if I miss a dose? If you miss a dose, take it as soon as you can. If it is almost time for your next dose, take only that dose. Do not take double or extra doses. Where should I keep my medicine? Keep out of the reach of children. Store between 2 and 30 degrees C (36 and 86 degrees F). Throw away any unused medicine after the expiration date. What should I tell my health care provider before I take this medicine? They need to know if you have any of these conditions: heart disease history of irregular heartbeat liver disease low levels of magnesium or potassium in the blood an unusual or allergic reaction to ondansetron, granisetron, other medicines, foods, dyes, or preservatives or trying to get breast-feeding What should I watch for while using this medicine? Check with your doctor or health human services care specialist as soon as you can if you have any sign of an allergic reaction. Sucralfate Oral tablet What is this medicine? SUCRALFATE (JASON wing fate) helps to treat ulcers of the intestine. How should I use this medicine? Take this medicine by mouth with a glass of water. Follow the directions on the prescription label. This medicine works best if you take it on an empty stomach, 1 hour before meals. Take your doses at regular intervals. Do not take your medicine more often than directed. Do not stop taking except on your doctor's advice. Talk to your night shift regarding the use of this medicine in children. Special care may be needed. What side effects may I notice from receiving this medicine? Side effects that you should report to your doctor or health human services care specialist as soon as possible: allergic reactions like skin rash, itching or hives, swelling of the face, lips, or tongue difficulty breathing Side effects that usually do not require medical attention (report to your doctor or health human services care specialist if they continue or are bothersome): back pain constipation drowsy, dizzy dry mouth headache stomach upset, gas trouble sleeping What may interact with this medicine? antacid cimetidine digoxin ketoconazole phenytoin quinidine ranitidine some antibiotics like ciprofloxacin, norfloxacin, and ofloxacin theophylline thyroid hormones warfarin What if I miss a dose? If you miss a dose, take it as soon as you can. If it is almost time for your next dose, take only that dose. Do not take double or extra doses. Where should I keep my medicine? Keep out of the reach of children. Store at room temperature between 15 and 30 degrees C (59 and 86 degrees F). Keep container tightly closed. Throw away any unused medicine after the expiration date. What should I tell my health care provider before I take this medicine? They need to know if you have any of these conditions: kidney disease an unusual or allergic reaction to sucralfate, other medicines, foods, dyes, or preservatives or trying to get breast-feeding What should I watch for while using this medicine? Visit your doctor or health human services care specialist for regular check ups. Let your doctor know if your symptoms do not improve or if you feel worse. Antacids should not be taken within one half hour before or after this medicine. Omeprazole Magnesium Gastro-resistant tablet What is this medicine? OMEPRAZOLE (oh ME pray zol) prevents the production of acid in the stomach. It is used to treat the symptoms of heartburn. You can buy this medicine without a prescription. This product is not for long-term use, unless otherwise directed by your doctor or health human services care specialist. How should I use this medicine? Take this medicine by mouth. Follow the directions on the product label. If you are taking this medicine without a prescription, take one tablet every day. Do not use for longer than 14 days or repeat a course of treatment more often than every 4 months unless directed by a doctor or healthcare professional. Take your dose at regular intervals every 24 hours. Swallow the tablet whole with a drink of water. Do not crush, break or chew. This medicine works best if taken on an empty stomach 30 minutes before breakfast. If you are using this medicine with the prescription of your doctor or healthcare professional, follow the directions you were given. Do not take your medicine more often than directed. Talk to your night shift regarding the use of this medicine in children. Special care may be needed. What side effects may I notice from receiving this medicine? Side effects that you should report to your doctor or health human services care specialist as soon as possible: allergic reactions like skin rash, itching or hives, swelling of the face, lips, or tongue bone, muscle or joint pain breathing problems chest pain or chest tightness dark yellow or brown urine diarrhea dizziness fast, irregular heartbeat feeling faint or lightheaded fever or sore throat muscle spasm palpitations redness, blistering, peeling or loosening of the skin, including inside the mouth seizures tremors unusual bleeding or bruising unusually weak or tired yellowing of the eyes or skin Side effects that usually do not require medical attention (Report these to your doctor or health human services care specialist if they continue or are bothersome.): constipation dry mouth headache loose stools nausea What may interact with this medicine? Do not take this medicine with any of the following medications: atazanavir clopidogrel nelfinavir This medicine may also interact with the following medications: ampicillin certain medicines for anxiety or sleep certain medicines that treat or prevent blood clots like warfarin cyclosporine diazepam digoxin disulfiram iron salts phenytoin prescription medicine for fungal or yeast infection like itraconazole, ketoconazole, voriconazole saquinavir tacrolimus What if I miss a dose? If you miss a dose, take it as soon as you can. If it is almost time for your next dose, take only that dose. Do not take double or extra doses. Where should I keep my medicine? Keep out of the reach of children. Store at room temperature between 20 and 25 degrees C (68 and 77 degrees F). Protect from light and moisture. Throw away any unused medicine after the expiration date. What should I tell my health care provider before I take this medicine? They need to know if you have any of these conditions: black or bloody stools chest pain difficulty swallowing have had heartburn for over 3 months have heartburn with dizziness, lightheadedness or sweating liver disease stomach pain unexplained weight loss vomiting with blood wheezing an unusual or allergic reaction to omeprazole, other medicines, foods, dyes, or preservatives or trying to get breast-feeding What should I watch for while using this medicine? It can take several days before your heartburn gets better. Check with your doctor or health human services care specialist if your condition does not start to get better, or if it gets worse. Do not treat diarrhea with over the counter products. Contact your doctor if you have diarrhea that lasts more than 2 days or if it is severe and watery. Do not treat yourself for heartburn with this medicine for more than 14 days in a row. You should only use this medicine for a 2-week treatment period once every 4 months. If your symptoms return shortly after your therapy is complete, or within the 4 month time frame, call your doctor or health human services care specialist. You have been given the following additional information: Abdominal Pain, Unknown Cause, (Female) Diet, Refugio (Adult) Ondansetron Oral disintegrating tablet Sucralfate Oral tablet Omeprazole Magnesium Gastro-resistant tablet (Electronically signed by Alexey Greenfield MD 11/24/2016 2:42)
--- NOTE | 2016-11-24 02:42 | ED MED RECONCILIATION SUMMARY ---
Patient: AYANA GARCIA Medication Reconciliation Report [facility] VisitID: [id number] [address] [place] [address] 36y, F Registration Date/Time: 11/12/2016 Weight: 63.5 kg Height/Length: 64 in. BMI: 24.0 ALLERGIES: Cipro, Morphine and Related, Reglan, Vicodin The patient's Home Medications are listed below: NONE. The source(s) of the original Home Medication information: Not obtained. The following Medications were given to the patient in the Emergency Department: IV NS IV Fluids bolus 0, then 999 mL/hr, administered: 11/12/2016 7:39:00 AM Zofran [IVP] IVP 4 mg, administered: 11/12/2016 7:58:00 AM Toradol [IVP] IVP 30 mg, administered: 11/12/2016 8:22:00 AM Ultram [PO] PO 100 mg, administered: 11/12/2016 9:43:00 AM The following Medications were prescribed to the patient: Zofran (orally disintegrating tablets) 4 mg: take 1 orally every 6 hours as needed for nausea. Dispense fifteen (15). No refill. -- Alexey Greenfield MD Carafate 1 gm tablets: take 1 orally four times daily (30 minutes before meals and at bedtime) for 10 days. Dispense forty (40). No refills. Substitution is permissible. -- Alexey Greenfield MD Ultram 50 mg tablets: take 1-2 orally every 6 hours as needed for pain. Dispense twenty (20). No refills. Substitution is permissible. -- Alexey Greenfield MD Prilosec 40 mg capsules: take 1 capsule orally every day for 10 days. Dispense ten (10). No refill. Substitution is permissible. -- Alexey Greenfield MD
== END 2016-11-12 09:54 | disposition home or self-care (01) ==
LOC: ED SRH 06:21
DX: R10.33 Periumbilical pain (principal); G89.29 Other chronic pain; R63.4 Abnormal weight loss; M54.2 Cervicalgia; E03.8 Other specified hypothyroidism; Z90.49 Acquired absence of other specified parts of digestive tract; Z72.0 Tobacco use; Z88.5 Allergy status to narcotic agent; Z88.1 Allergy status to other antibiotic agents; Z88.8 Allergy status to other drugs, medicaments and biological substances
CPT/HCPCS: 90004; 90100; 90197; 91585; 92235; 92530; 93004; 93070; 93140; 94060; 95059; 95150